=== PATIENT | male | born 2000 | race Caucasian/White ===

== ENCOUNTER 2022-04-16 14:26 | Day surgery (SDC) | payer MEDICAID, OTHER ==
[~2022-04-16] VITALS: Ht 185.5 cm; Wt 79.5 kg
[2022-04-16] VITALS (12 sets, daily range): BP systolic 110–137; BP diastolic 61–88
[2022-04-16] MEDS ORDERED: GLUCAGON EMERGENCY 1 MG/KIT ONE (14:34)
--- NOTE | 2022-04-16 14:40 | ED EENT ---
History of Present Illness General Chief Complaint: Foreign Body Stated Complaint: ESOPHAGEAL BLOCKAGE Source: patient Exam Limitations: no limitations History of Present Illness Date Seen by Provider: Apr 16, 2022 Time Seen by Provider: 14:32 Initial Comments 22-year-old male presents to the emergency department today for a piece of a chicken sandwich stuck in his throat. He has had several food boluses in the past. States he was supposed to "get a surgery but I have not done it." He is having to spit into a cup as he cannot currently swallow any liquids. No other injuries. Allergies and Home Medications Allergies Coded Allergies: No Known Drug Allergies (Unverified , 04/16/22) Patient Home Medication List Home Medication List Reviewed: Yes Review of Systems Review of Systems Constitutional: no symptoms reported Eyes: No Symptoms Reported Ears: No Symptoms Reported Nose: no symptoms reported Mouth: no symptoms reported Throat: painful swallowing, difficulty with fluids Respiratory: no symptoms reported Cardiovascular: no symptoms reported Gastrointestinal: no symptoms reported Musculoskeletal: no symptoms reported Skin: no symptoms reported Neurological: No Symptoms Reported Hematologic/Lymphatic: No Symptoms Reported Immunological/Allergic: no symptoms reported Past Pvzviyt-Zvirnt-Zzleks Hx Patient Social History Tobacco Use?: Yes Use of E-Cig and/or Vaping dev: No Substance use?: No Alcohol Use?: No Past Medical History Surgeries: No Family Medical History Reviewed Nursing Family Hx No Pertinent Family Hx Physical Exam Vital Signs Vital Signs - First Documented 04/16/22 14:31 Temp 36.0 Pulse 81 Resp 16 B/P (MAP) 148/75 (99) Pulse Ox 99 O2 Delivery Room Air Height, Weight, BMI Height: '" Weight: lbs. oz. kg; BMI Method: General Appearance: WD/WN, no apparent distress Eyes: bilateral eye normal inspection, bilateral eye PERRL, bilateral eye EOMI Ears: bilateral ear auricle normal, bilateral ear canal normal, bilateral ear TM normal Nose: normal inspection Mouth/Throat: normal mouth inspection, pharynx normal, other (Spitting into a cup) Neck: full range of motion, supple, normal inspection Cardiovascular: regular rate, rhythm, no edema, no gallop, no JVD, no murmur Respiratory: chest non-tender, lungs clear, normal breath sounds, no re spiratory distress, no accessory muscle use Gastrointestinal: normal bowel sounds, non tender, soft, no organomegaly, no pulsatile mass Neurologic/Psychiatric: alert, normal mood/affect, oriented x 3 Skin: normal color, warm/dry Progress/Results/Core Measures Results/Orders My Orders Orders - FRANKLIN JUNG DO Glucagon Emergency Kit (Glucagon Emergen (04/16/22 14:45) Glucagon Emergency Kit (Glucagon Emergen (04/16/22 14:34) Medications Given in ED Current Medications Medications Dose Ordered Sig/Tram Route Start Time Stop Time Status Last Admin Dose Admin Glucagon 4 mg ONCE ONCE IM 04/16/22 14:45 04/16/22 14:46 DC 04/16/22 14:38 4 MG Vital Signs/I&O 04/16/22 14:31 Temp 36.0 Pulse 81 Resp 16 B/P (MAP) 148/75 (99) Pulse Ox 99 O2 Delivery Room Air Departure Communication (Admissions) Family Conversation Patient given glucagon initially upon arrival. No effect. Continues to have to spit his saliva into a cup at bedside. I spoke with Dr. Castro, general surgery at [facility]. He accepts patient in transfer. I spoke with warehouse incentive selector he will go straight to the preoperative area on arrival there. He stable to transfer via private vehicle. His friend will drive him who is currently here. He is transferred via private vehicle in stable condition. Impression Primary Impression: Foreign body in esophagus Qualified Codes: T18.108A - Unspecified foreign body in esophagus causing other injury, initial encounter Disposition: 30 STILL A PATIENT Condition: Stable Departure-Patient Inst. Referrals: NO,LOCAL PHYSICIAN (PCP/Family) Primary Care Physician FRANKLIN JUNG DO Apr 16, 2022 14:40
[2022-04-16] MEDS ORDERED: GLUCAGON EMERGENCY 1 MG/KIT IM ONE (14:45)
[2022-04-16] MEDS ORDERED: ONDANSETRON 4 MG/2 ML (SDV) Z0FRAN ONE (16:27)
[2022-04-16] MEDS ORDERED: proPOfol 200 MG/20 ML (DIPRIVAN) VIAL IV ONE (16:27)
[2022-04-16] MEDS ORDERED: SEVOFLURANE (ULTANE) 15 ML INHAL SOLN ONE (16:27)
[2022-04-16] MEDS ORDERED: SUCCINYLCHOLINE INJ 100 MG/5 ML SYR/VIAL ONE (16:27)
[2022-04-16] MEDS ORDERED: LIDOCAINE PF 2% 5 ML (XYLOCAINE) VIAL ONE (16:27)
[2022-04-16] MEDS ORDERED: fentaNYL INJ 100 MCG/2 ML AMP ONE (16:28)
[2022-04-16] MEDS ORDERED: MIDAZOLAM 2 MG/2 ML (VERSED) VIAL ONE (16:28)
--- NOTE | 2022-04-16 16:46 | Progress Note-Pre Operative ---
Pre-Operative Progress Note Date of Available H&P: Apr 16, 2022 Date H&P Reviewed: Apr 16, 2022 Time H&P Reviewed: 16:00 History & Physical: No changes noted Pre-Operative Diagnosis: GERD, dysphagia, esoph FB DORIAN ROJAS MD Apr 16, 2022 16:46
[2022-04-16] MEDS ORDERED: LACTATED RINGERS 1,000 ML IV PRN (17:00)
--- NOTE | 2022-04-16 17:08 | Progress Note-Post Operative ---
Post-Operative Progess Note Surgeon (s)/Hammer Fitter (s) Surgeon DORIAN ROJAS MD Hammer Fitter: none Pre-Operative Diagnosis GERD, dysphagia, esoph FB Post-Operative Diagnosis esoph FB, reflux esophagitis(grade C), distal esoph stricture, no HH, moderate gastritis. Procedure & Operative Findings Date of Procedure 04/16/22 Procedure Performed/Findings EGD with bx, removal esoph FB, balloon dilatation. Anesthesia Type mac Estimated Blood Loss Estimated blood loss (mL): minimal Specimens/Packing Specimens Removed ge jxn, antrum DORIAN ROJAS MD Apr 16, 2022 17:08
--- NOTE | 2022-04-16 17:34 | HISTORY AND PHYSICAL ---
INDICATIONS: The patient is a 22-year-old male who presented to [facility] emergency department after developing dysphagia after eating a food bolus, which consisted of a chicken sandwich. He states that he has had a few of these episodes in the past. He states that he is going to school at [employer] and is originally from [place]. He has had these removed in the past endoscopically; however, does not report ever having a dilatation procedure. He does not report any classic symptoms of reflux or regurgitation. He also does not report any episodes of hematemesis, no coffee-ground emesis. He does have some risk factors for peptic ulcer disease as well as reflux including smoking, alcohol as well as significant caffeinated beverages. PAST MEDICAL HISTORY: Gastroesophageal reflux disease and likely esophageal stricture. PAST SURGERIES: None. ALLERGIES: NO KNOWN DRUG ALLERGIES. MEDICATIONS: None. SOCIAL HISTORY: Positive smoker, positive alcohol. FAMILY HISTORY: Noncontributory. VITAL SIGNS: Blood pressure 140/75, pulse 81, temperature 36.0, respirations 16, pulse ox 99% on room air. REVIEW OF SYSTEMS: Well-nourished male, currently in no acute distress. He is not experiencing any shortness of breath or difficulty breathing. He does have some substernal chest pressure sensation with difficulty swallowing saliva. No episodes of regurgitation as well as no hematemesis, no coffee-ground emesis. His previous bowel movements have been normal. No red blood per rectum, no dark tarry stools. No fever or chills. No recent inadvertent weight loss. All other review of systems negative. PHYSICAL EXAMINATION: CHEST: Clear, good breath sounds bilaterally. HEART: Regular, no murmurs. EXTREMITIES: No lower extremity edema. Negative Homans sign. HEENT: No scleral icterus. No cervical lymphadenopathy. ABDOMEN: Soft, nontender, nondistended. SKIN: Warm and dry. ASSESSMENT AND PLAN: A 22-year-old male with dysphagia and esophageal foreign body. We will proceed with EGD, removal of esophageal foreign body, biopsies as well as balloon dilatation. Job ID: [id number] DocumentID: [id number] Dictated Date: 04/16/2022 16:46:31 Orthopedic Technician Date: 04/16/2022 17:32:00 Dictated By: DORIAN ROJAS MD
[2022-04-16] MEDS ORDERED: PANT40TA2 PO (17:58)
--- NOTE | 2022-04-16 17:59 | Discharge Inst-Surgical ---
D/C Lap Instructions-KIDO New, Converted, or Re-Newed RX: RX on Chart Follow Up PRN Activity as tolerated Mechanical soft diet for next 2 weeks. High Fiber Diet 25g or more per day Avoid Alcohol, Caffeine, Spicy [place] and Acid foods. Drink 64 fluid oz or more of fluids per day. Symptoms to Report: Fever over 101 degree F, Nausea/Vomiting If any problems/questions: Contact your physician or go to Emergency Room DORIAN ROJAS MD Apr 16, 2022 17:59
--- NOTE | 2022-04-17 04:31 | OPERATIVE REPORT ---
DATE OF SERVICE: 04/16/2022 PREOPERATIVE DIAGNOSES: Dysphagia, esophageal foreign body with history of reflux and previous dysphagia. POSTOPERATIVE DIAGNOSES: Esophageal foreign body, reflux esophagitis, [place] grade C, distal esophageal stricture. No hiatal hernia. Moderate gastritis. No distal obstructions. PROCEDURE: EGD with removal of esophageal foreign body, biopsy balloon dilatation. SURGEON: Dorian Rojas MD. ANESTHESIA: General endotracheal. ESTIMATED BLOOD LOSS: Minimal. FINDINGS: Esophageal foreign body, reflux esophagitis, [place] grade C, distal esophageal stricture. No hiatal hernia. Moderate gastritis. No distal obstructions. DISPOSITION: The patient tolerated the procedure well. INDICATIONS: The patient is a 22-year-old male who was eating a chicken sandwich today for lunch and then felt a substernal pressure sensation and tried to push this down with water; however, this increased the pressure into the neck. He states that he has had this before several times and would either reduce on its own or else he would regurgitate it out. He does not report any classic symptoms of reflux and states no epigastric burning sensation or crampy pain; however, states that he does take Rolaids at times. Also, again he has had several episodes of this requiring endoscopy and removal of foreign body. DESCRIPTION OF PROCEDURE: The patient was brought to the operating room, laid supine on the table. After adequate IV pain and sedative medications and general endotracheal intubation, the mouthpiece was applied. The endoscope was placed in the mouth to visualize the pharynx and hypopharyngeal region. Vocal cords, epiglottis and vallecula identified and appeared to be normal. The endoscope was then gently intubated into the esophageal opening. Esophagus was insufflated. The endoscope was then advanced into the first, second and third portion of the esophagus where the esophageal foreign body, which was consistent with a chicken bolus. At this time, this was somewhat soft and deformable and after manipulation and visualization of the stomach was identified. Now with gentle pressure of food bolus the food bolus did reduce into the stomach without any difficulty. Reflux esophagitis, [place] grade C identified, as well as a distal esophageal stricture. Biopsy was taken with forceps with visualization with good hemostasis. The endoscope was then placed in the stomach and the endoscope was retroflexed, visualizing no hiatal hernia. There was a moderate diffuse gastritis. No formal ulcerations polyps or neoplasms. A biopsy was taken of the antrum to rule out H. pylori with visualization with good hemostasis. The endoscope was then advanced through the pylorus into the first and second portion of the duodenum, which appeared normal with no distal obstructions. The balloon was then placed in the stomach and pulled back to the area of the stricture. We then proceeded in a graded stepwise fashion from 2-4 and eventually 5 atmospheres of pressure or 19.5 mm in luminal diameter with moderate resistance and left this in place for approximately 60 seconds. The balloon was then desufflated and removed with visualization with good hemostasis as well as no mucosal tears. The endoscope was then slowly withdrawn to take a second look and suctioning of residual air with no additional findings. The patient tolerated the procedure well. He does have atypical gastroesophageal reflux disease and peptic ulcer disease and it will be recommended that he proceed with the necessary lifestyle and dietary accommodation including moderation of smoking and alcohol as well as caffeinated beverages. He also needs to take smaller more frequent meals avoidance, avoid eating at night as well as head elevation while lying supine. We will also start him on Protonix 40 mg daily. If he does have the sensation of some reoccurring dysphagia, we will have him call the office and we will schedule him for another outpatient balloon dilatation to a goal of 20 mm in diameter. Again, the natural history of these things do often reoccur, however, we would recommend doing the dilatation before the foreign body impaction occurs. Job ID: [id number] DocumentID: [id number] Dictated Date: 04/16/2022 17:15:18 Lining Finisher Date: 04/17/2022 04:28:00 Dictated By: DORIAN ROJAS MD
--- NOTE | 2022-04-18 14:48 | Anesthesia-General Post-Op ---
General Patient Condition Mental Status/LOC: Same as Preop Cardiovascular: Satisfactory Nausea/Vomiting: Absent Respiratory: Satisfactory Pain: Controlled Complications: Absent Post Op Complications Complications None Follow Up Care/Instructions Patient Instructions None needed. Anesthesia/Patient Condition Patient Condition Patient was already discharged to home yesterday during postop rounds which were approximately at 1430. Nursing staff states he was doing well, no complaints, stable vital signs, no apparent adverse anesthesia problems noted prior to his discharge to home. No complications reported per nursing. LESA NAQVI DO Apr 18, 2022 14:48
== END 2022-04-16 19:22 | disposition home or self-care (01) ==
LOC: ER FS 14:29 → SDC 16:05
PROVIDERS: ATTEND Surgery
DX: K29.50 Unspecified chronic gastritis without bleeding (principal); K22.2 Esophageal obstruction; K22.10 Ulcer of esophagus without bleeding; K31.89 Other diseases of stomach and duodenum; K21.00 Gastro-esophageal reflux disease with esophagitis, without bleeding; F17.210 Nicotine dependence, cigarettes, uncomplicated
CPT/HCPCS: 96372; 99284